=== PATIENT | female | born 1940 | race Caucasian/White ===

== ENCOUNTER → 2016-02-25 | Outpatient (CLI) | payer OTHER ==
[~2016-02-25] MED LIST: CALC500C70 PO; CHOLTAB3 PO; CIPR0.3S OPL; CRAN1CAP15 PO; CRAN1TAB6 PO; ERGO1TAB12 PO; LISI20TA3 PO; LOVA20TA4 PO; NEPA0.6D OPL; NEPA0.6D OPR; PRED1SUS3 OPL
== END | disposition home or self-care (01) ==
LOC: C.LABMFLN 09:07
PROVIDERS: ATTEND Family Medicine
DX: R30.0 Dysuria (principal); N39.0 Urinary tract infection, site not specified

== ENCOUNTER → 2016-05-14 | Outpatient (CLI) | payer OTHER ==
[2016-05-14 13:27] LABS: ALT/SGPT 32 U/L (12-78); AST/SGOT 23 U/L (15-37); BLOOD UREA NITROGEN 15 mg/dl (7-18); BUN/CREATININE RATIO 16.7 (10-20); CALCIUM 9.4 mg/dl (8.5-10.1); CARBON DIOXIDE 30 mmol/L (21-32); CHLORIDE 106 mmol/L (98-107); CHOLESTEROL 155 mg/dl (0-200); GLUCOSE 102 mg/dl (70-99); POTASSIUM 3.9 mmol/L (3.5-5.1); SODIUM 142 mmol/L (136-145)
[2016-05-14 13:31] LABS: CHOLESTEROL/HDL RATIO 3.5; HDL CHOLESTEROL 44 mg/dl; LDL CHOLESTEROL CALCULATED 76 mg/dl; TRIGLYCERIDES 175 mg/dl (0-150); VERY LOW DENSITY LIPOPROT CALC 35 mg/dl
== END | disposition home or self-care (01) ==
LOC: C.LABMFLN 08:04
PROVIDERS: ATTEND Family Medicine
DX: I10 Essential (primary) hypertension (principal); E78.00 Pure hypercholesterolemia, unspecified; R73.03 Prediabetes; E83.42 Hypomagnesemia; M81.0 Age-related osteoporosis without current pathological fracture

== ENCOUNTER → 2016-07-28 | Outpatient (CLI) | payer OTHER | END | disposition home or self-care (01) | LOC: C.LABMFLN 11:48 | PROVIDERS: ATTEND Family Medicine | DX: R35.0 Frequency of micturition (principal) ==

== ENCOUNTER 2016-08-01 09:28 | Observation (INO) | payer OTHER ==
[~2016-08-01] VITALS: Ht 161.3 cm; Wt 69.4 kg
[~2016-08-01 09:28] MED LIST changes: -CRAN1TAB6 PO; -ERGO1TAB12 PO
[2016-08-01] MEDS ORDERED: ASPIRIN 81 MG CHEW PO STA (09:42)
[2016-08-01] MEDS ORDERED: NITROGLYCERIN 0.4 MG SL PER TAB CHARGE SL PRN ×2 (09:45→13:00)
[2016-08-01] MEDS ORDERED: METOPROLOL TARTRATE 1 MG/ML VIAL IV STA (09:47)
--- NOTE | 2016-08-01 10:05 | DIAGNOSTIC IMAGING REPORT ---
CHEST ONE VIEW PORTABLE CLINICAL HISTORY: Fever and sepsis COMPARISON STUDY: No previous studies for comparison. FINDINGS: The cardiac and mediastinal contours are normal. There is no evidence of focal pulmonary consolidation. There is no evidence of failure. No pleural effusions are visualized.[ IMPRESSION: No active disease in the chest. Electronically signed by: Rishi Flores M.D. 08/01/2016 10:04 AM Dictated Date/Time: 08/01/2016 10:03 AM
[2016-08-01 10:11] LABS: BASO % 0.2 %; BASO ABS # 0.02 K/uL (0-0.2); COMPLETE YES; EOS % 0.7 %; HEMATOCRIT 45.7 % (37-47); IG% 0.2 %; LYMPH % 19.7 %; LYMPH ABS # 1.67 K/uL (1.2-3.4); MEAN CELL VOLUME 86.6 fL (80-100); MEAN CORPUSCULAR HEMOGLOBIN 30.3 pg (25-34); MEAN PLATELET VOLUME 10.1 fL (7.4-10.4); NEUT % 71.2 %; PLATELET COUNT 212 K/uL (130-400); RED BLOOD COUNT 5.28 M/uL (4.2-5.4); WHITE BLOOD COUNT 8.48 K/uL (4.8-10.8)
[2016-08-01] MEDS ORDERED: CRAN1TAB6 PO (10:16)
[2016-08-01] MEDS ORDERED: ERGO1TAB12 PO (10:16)
[2016-08-01 10:28] LABS: PROTHROMBIN TIME (PATIENT) 10.2 SECONDS (9.0-12.0)
[2016-08-01 10:36] LABS: ALT/SGPT 27 U/L (12-78); BLOOD UREA NITROGEN 12 mg/dl (7-18); BUN/CREATININE RATIO 12.9 (10-20); CARBON DIOXIDE 25 mmol/L (21-32); CHLORIDE 101 mmol/L (98-107); CREATININE 0.92 mg/dl (0.60-1.20); GLUCOSE 124 mg/dl (70-99); POTASSIUM 3.9 mmol/L (3.5-5.1); SODIUM 138 mmol/L (136-145)
[2016-08-01 10:43] LABS: URINE APPEARANCE CLEAR (CLEAR); URINE BILIRUBIN NEG (NEG); URINE COLOR YELLOW; URINE EPITHELIAL CELL AUTO >30 /lpf (0-5); URINE NITRITE NEG (NEG); URINE SPECIFIC GRAVITY 1.014 (1.000-1.030); UROBILINOGEN NEG (NEG)
[2016-08-01 10:46] LABS: MANUAL MICROSCOPIC REQUIRED? NO; REVIEW REQ? NO
[2016-08-01 10:47] LABS: ALKALINE PHOSPHATASE 81 U/L (45-117); AST/SGOT 22 U/L (15-37); CKMB/CK RATIO 2.7 (0-3.0)
[2016-08-01 11:18] LABS: CALCIUM 10.4 mg/dl (8.5-10.1)
--- NOTE | 2016-08-01 12:29 | EMERGENCY ROOM VISIT NOTE ---
History Report prepared by Dariusz: Franci Stevens Under the Supervision of: Varghese StricklandO. First contact with patient: 09:42 Chief Complaint: CARDIAC ASSESSMENT Stated Complaint: CHEST TIGHTNESS, SOB, HYPERTENSION Nursing Triage Summary: triage note: pt reports "i have been up all night with chest tightness, no pain, i am also short of breath." History of Present Illness The patient is a 75 year old female who presents to the Emergency Room with complaints of persistent chest tightness starting last night. She reports a fast heart rate. She also complains of shortness of breath. She denies diaphoresis, nausea, vomiting, or any other complaints. She has a history of acid reflux but denies any similar symptoms today. She also has a history of hypertension but denies missing any of her prescribed medications. She had an episode high blood pressure about a week ago and was taken off of Meloxicam with relief. She denies any history of heart disease. She was diagnosed with a UTI 4 days ago and she was started on Cipro. Source of History: patient Onset: last night Position: chest Quality: other (tightness) Timing: other (persistent) Associated Symptoms: + SOB, No diaphoresis, No nausea, No vomiting Review of Systems See HPI for pertinent positives & negatives. A total of 10 systems reviewed and were otherwise negative. Past Medical & Surgical Medical Problems: (1) HTN (hypertension) (2) Hypomagnesemia (3) Pharyngitis Family History Patient reports no known family medical history. Social History Smoking Status: Never Smoker Marital Status: Occupation Status: retired Current/Historical Medications Scheduled Calcium/Vitamin D (Os-Damian 500 Plus D), 1 TAB PO BID Cranberry (Vaccinium Macrocarp (Cranberry), 600 MG PO DAILY Ergocalciferol (Vitamin D2), 2,000 UNITS PO DAILY Lisinopril (Prinivil), 20 MG PO QAM Lovastatin (Mevacor), 20 MG PO HS Allergies Coded Allergies: Sulfa Antibiotics (Verified Allergy, Mild, "SULFA": HIVES, 08/01/16) Physical Exam Vital Signs Date Time Temp Pulse Resp B/P (MAP) Pulse Ox O2 Delivery O2 Flow Rate FiO2 08/01/16 11:16 82 20 163/101 97 Room Air 08/01/16 11:02 81 18 158/108 97 Room Air 08/01/16 10:09 172/117 08/01/16 10:03 102 187/98 08/01/16 10:01 102 18 187/98 Room Air 08/01/16 10:01 96 Room Air 08/01/16 09:47 130 08/01/16 09:36 36.7 109 18 201/103 98 Room Air Physical Exam CONSTITUTIONAL/VITAL SIGNS: Reviewed / noted above. GENERAL: Non-toxic in appearance. INTEGUMENTARY: Warm, dry, and Gerty. HEAD: Normocephalic. EYES: without scleral icterus or trauma. ENT/OROPHARYNX: clear and moist. LYMPHADENOPATHY/NECK: Is supple without lymphadenopathy or meningismus. RESPIRATORY: Lungs clear and equal. CARDIOVASCULAR: Tachycardic rate and regular rhythm. GI/ABDOMEN: Soft and nontender. No organomegaly or pulsatile mass. No rebound or guarding. Normal bowel sounds. EXTREMITIES: Warm and well perfused. BACK: No CVA tenderness. NEUROLOGICAL: Intact without focal deficits. PSYCHIATRIC: normal affect. MUSCULOSKELETAL: Normally developed with good muscle tone. Medical Decision & Procedures ER Provider Diagnostic Interpretation: X ray results and stated below per my interpretation and radiology interpretation. CHEST ONE VIEW PORTABLE CLINICAL HISTORY: Fever and sepsis COMPARISON STUDY: No previous studies for comparison. FINDINGS: The cardiac and mediastinal contours are normal. There is no evidence of focal pulmonary consolidation. There is no evidence of failure. No pleural effusions are visualized.[ IMPRESSION: No active disease in the chest. Electronically signed by: Rishi Flores M.D. 08/01/2016 10:04 AM Dictated Date/Time: 08/01/2016 10:03 AM Laboratory Results 08/01/16 10:00 Red Blood Count 5.28, Mean Corpuscular Volume 86.6, Mean Corpuscular Hemoglobin 30.3, Mean Corpuscular Hemoglobin Concent 35.0, Mean Platelet Volume 10.1, Neutrophils (%) (Auto) 71.2, Lymphocytes (%) (Auto) 19.7, Monocytes (%) (Auto) 8.0, Eosinophils (%) (Auto) 0.7, Basophils (%) (Auto) 0.2, Neutrophils # (Auto) 6.03, Lymphocytes # (Auto) 1.67, Monocytes # (Auto) 0.68, Eosinophils # (Auto) 0.06, Basophils # (Auto) 0.02 08/01/16 10:00 Test 08/01/16 10:00 08/01/16 10:15 White Blood Count 8.48 K/uL (4.8-10.8) Red Blood Count 5.28 M/uL (4.2-5.4) Hemoglobin 16.0 g/dL (12.0-16.0) Hematocrit 45.7 % (37-47) Mean Corpuscular Volume 86.6 fL (80-100) Mean Corpuscular Hemoglobin 30.3 pg (25-34) Mean Corpuscular Hemoglobin Concent 35.0 g/dl (32-36) Platelet Count 212 K/uL (130-400) Mean Platelet Volume 10.1 fL (7.4-10.4) Neutrophils (%) (Auto) 71.2 % Lymphocytes (%) (Auto) 19.7 % Monocytes (%) (Auto) 8.0 % Eosinophils (%) (Auto) 0.7 % Basophils (%) (Auto) 0.2 % Neutrophils # (Auto) 6.03 K/uL (1.4-6.5) Lymphocytes # (Auto) 1.67 K/uL (1.2-3.4) Monocytes # (Auto) 0.68 K/uL (0.11-0.59) Eosinophils # (Auto) 0.06 K/uL (0-0.5) Basophils # (Auto) 0.02 K/uL (0-0.2) RDW Standard Deviation 40.5 fL (36.4-46.3) RDW Coefficient of Variation 12.7 % (11.5-14.5) Immature Granulocyte % (Auto) 0.2 % Immature Granulocyte # (Auto) 0.02 K/uL (0.00-0.02) Prothrombin Time 10.2 SECONDS (9.0-12.0) Prothromb Time International Ratio 1.0 (0.9-1.1) Activated Partial Thromboplast Time 26.7 SECONDS (21.0-31.0) Partial Thromboplastin Ratio 1.0 Anion Gap 12.0 mmol/L (3-11) Est Creatinine Clear Calc Drug Dose 48.8 ml/min Estimated GFR () 70.1 Estimated GFR (Non- 60.5 BUN/Creatinine Ratio 12.9 (10-20) Calcium Level 10.4 mg/dl (8.5-10.1) Total Bilirubin 0.5 mg/dl (0.2-1) Direct Bilirubin 0.1 mg/dl (0-0.2) Aspartate Amino Transf (AST/SGOT) 22 U/L (15-37) Alanine Aminotransferase (ALT/SGPT) 27 U/L (12-78) Alkaline Phosphatase 81 U/L (45-117) Total Creatine Kinase 79 U/L (26-192) Creatine Kinase MB 2.1 ng/ml (0.5-3.6) Creatine Kinase MB Ratio 2.7 (0-3.0) Troponin I < 0.015 ng/ml (0-0.045) Total Protein 8.6 gm/dl (6.4-8.2) Albumin 4.6 gm/dl (3.4-5.0) Lipase 264 U/L (73-393) Thyroid Stimulating Hormone (TSH) 2.050 uIu/ml (0.300-4.500) Urine Color YELLOW Urine Appearance CLEAR (CLEAR) Urine pH 6.0 (4.5-7.5) Urine Specific [place] 1.014 (1.000-1.030) Urine Protein 1+ (NEG) Urine Glucose (UA) NEG (NEG) Urine Ketones NEG (NEG) Urine Occult Blood NEG (NEG) Urine Nitrite NEG (NEG) Urine Bilirubin NEG (NEG) Urine Urobilinogen NEG (NEG) Urine Leukocyte Esterase NEG (NEG) Urine WBC (Auto) 1-5 /hpf (0-5) Urine RBC (Auto) 0-4 /hpf (0-4) Urine Hyaline Casts (Auto) 0 /lpf (0-5) Urine Epithelial Cells (Auto) >30 /lpf (0-5) Urine Bacteria (Auto) NEG (NEG) Laboratory results as stated above per my review. Medications Administered Medications (Trade) Dose Ordered Sig/Adrienne Route Start Time Stop Time Status Last Admin Dose Admin Aspirin (Aspirin Chew) 324 mg NOW STAT PO 08/01/16 09:42 08/01/16 09:44 DC 08/01/16 10:03 324 MG Metoprolol Tartrate (Lopressor Iv) 5 mg NOW STAT IV 08/01/16 09:47 08/01/16 09:48 DC 08/01/16 10:03 5 MG ECG Indication: chest pain Rate (beats per minute): 100 Rhythm: normal sinus Findings: no acute ischemic change, no ectopy ED Course 0942: Previous medical records were reviewed. The patient was evaluated in room B04B. A complete history and physical examination was performed. 0942: Aspirin 324 mg PO 0947: Lopressor IV 5 mg IV 1209: On reevaluation, the patient is resting comfortably. I discussed the results and findings with her. She verbalized agreement of the treatment plan. The patient will be evaluated for further management and care. 1217: I discussed the patient's case with Dr. Godinez, from [facility] Hospitalist Service. Medical Decision the differential was considered includes acute myocardial infarction, acute coronary syndrome, myocarditis, pericarditis, pericardial effusions /tamponade, esophageal perforation, thoracic aortic dissection, pulmonary embolism, pneumonia, pneumothorax, pancreatitis, shingles, acute cholecystitis, perforated abdominal viscus. Medication Reconciliation: I attest that I have personally reviewed the patient' s current medication list. Blood pressure Screening: Patient was found to have an elevated blood pressure and was referred to the hospitalist for recheck and further treatment. This is a 75-year-old female who presents to the ED with a chief complaint of chest discomfort. She describes it as a retrosternal tightness. She has associated shortness of breath. She states that she has difficulty getting a good deep breath. Her symptoms started last night around 10 PM. She denies any associated nausea or diaphoresis. She states that she did take her lisinopril this morning. Her initial blood pressure here was 201/103. The patient was on meloxicam 2 weeks ago for arthritis. Her blood pressure was noticed to be quite elevated in the 200s systolic range and this was discontinued. She was started on Cipro for UTI on Thursday. The patient has an unremarkable exam. Her EKG shows a normal sinus rhythm. CBC and complete metabolic panel are normal. Troponin was negative. TSH is normal. Lipase is negative. Urine did not show infection. Chest x-ray was negative for acute disease. The patient was treated with Toprol 5 mg IV and aspirin by mouth. She refused nitroglycerin. Her blood pressure improved to 155/99. On reassessment her symptoms have improved. She was seen by the hospice for further inpatient evaluation of her chest pain and hypertension. Consults Time Called: 1215 Consulting Physician: Dr. Godinez, from [facility] Hospitalist Service Returned Call: 1217 I discussed the patient's case with Dr. Godinez, from [facility] Hospitalist Service. Impression Primary Impression: Retrosternal chest pain Additional Impression: Accelerated hypertension Scribe Attestation The scribe's documentation has been prepared under my direction and personally reviewed by me in its entirety. I confirm that the note above accurately reflects all work, treatment, procedures, and medical decision making performed by me. Departure Information Dispostion Being Evaluated By Hospitalist Referrals Miguel Cuevas M.D. (PCP) Patient Instructions My [facility] Problem Qualifiers
[2016-08-01] MEDS ORDERED: PANTOprazole SOD 40 MG TAB PO ONE (13:00)
[2016-08-01] MEDS ORDERED: HydrALAZINE HCL 20 MG/ML VIAL IV. PRN (13:00)
[2016-08-01] MEDS ORDERED: ACETAMINOPHEN 325 MG TAB PO PRN (13:00)
[2016-08-01] MEDS ORDERED: POLYETHYLENE (MIRALAX) 17 GM PACK PO PRN (13:00)
[2016-08-01] MEDS ORDERED: MAGNESIUM HYDROXIDE SUSP 30 ML UDC PO PRN (13:00)
[2016-08-01] MEDS ORDERED: ALUMINUM/MAGNESIUM/SIMETH (MAALOX MAX) 30 ML UDC PO PRN (13:00)
[2016-08-01] MEDS ORDERED: METOPROLOL TARTRATE 1 MG/ML VIAL IV PRN (13:00)
--- NOTE | 2016-08-01 13:31 | History and Physical ---
History & Physical Date & Time of Service: Aug 01, 2016 at 13:07 Chief Complaint: Chest Tightness, Sob, Hypertension Primary Care Physician: Miguel Cuevas M.D. History of Present Illness Source: patient, clinic records, hospital records, friend (at bedside) Patient is 75 y/o female, with PMHx of HTN and dyslipidemia, who presented to the ED because of CP and SOB that started on 07/31 evening. Patient states she was in bed last evening when she noted central anterior chest pain. Pain is described as a "tightness," does not radiate, and is constant. Her SOB comes and goes. She denies history of COPD/asthma or smoking. She is currently oxygenating on RA and able to speak full sentences w/ no SOB. She admits to a similar episode a couple of weeks ago. The patient was placed on Meloxicam, but her BP started to rise so it was discontinued. Along w/ her high BP, she develop similar symptoms but less intense. The patient has been logging her BPs over the last couple of weeks since d/c'ing Meloxicam- BPs 130-140/80, until today when she checked, her BP was elevated. On arrival to ED her BP was 201/ 103. She only takes Lisinopril 20 mg daily for blood pressure management. She denies issues with BP control until starting Meloxicam. Patient admits to similar symptoms about 3 years ago, she had an EGD and placed on Protonix, which resolved her symptoms. She denies current use of Protonix. She has had stress test in the past which were unremarkable. She was placed on Cipro on for a UTI. Currently, her CP and SOB is improving; she was given ASA 325 mg and IV Metoprol 5 mg in ED. Patient denies any fever, chills, sweats, lightheadedness, dizziness, vision changes, palpitations, edema, wheezing, cough , abdominal pain, nausea, vomiting, diarrhea, urinary symptoms, melena, numbness /tingling, weakness, muscle/joint pain, anxiety/depression, active bleeding, or new skin discoloration/changes. Past Medical/Surgical History Medical Problems: 1. HTN 2. Dyslipidemia Surgical History: 1. Total hysterectomy 2. Cholecystectomy 3. Hernia repair Family History Father- CVA Social History Smoking Status: Never Smoker Marital Status: Occupational Status: retired Allergies Coded Allergies: Sulfa Antibiotics (Verified Allergy, Mild, "SULFA": HIVES, 08/01/16) Home Medications Scheduled Calcium/Vitamin D (Os-Damian 500 Plus D), 1 TAB PO BID Cranberry (Vaccinium Macrocarp (Cranberry), 600 MG PO DAILY Ergocalciferol (Vitamin D2), 2,000 UNITS PO DAILY Lisinopril (Prinivil), 20 MG PO QAM Lovastatin (Mevacor), 20 MG PO HS Physical Exam Vital Signs Date Time Temp Pulse Resp B/P (MAP) Pulse Ox O2 Delivery O2 Flow Rate FiO2 08/01/16 12:52 99 18 155/99 98 Room Air 08/01/16 11:16 82 20 163/101 97 Room Air 08/01/16 11:02 81 18 158/108 97 Room Air 08/01/16 10:09 172/117 08/01/16 10:03 102 187/98 08/01/16 10:01 102 18 187/98 Room Air 08/01/16 10:01 96 Room Air 08/01/16 09:47 130 08/01/16 09:36 36.7 109 18 201/103 98 Room Air General Appearance: no apparent distress Head: normocephalic, atraumatic Eyes: normal inspection, PERRL ENT: hearing grossly normal Neck: supple, no carotid bruits Respiratory/Chest: lungs clear, no respiratory distress, no accessory muscle use Cardiovascular: regular rate, rhythm Abdomen/GI: normal bowel sounds, non tender, soft Back: normal inspection Extremities/Musculoskelatal: no calf tenderness, no pedal edema Neurologic/Psych: alert, normal mood/affect, oriented x 3 Skin: normal color, warm/dry, no rash Diagnostics Laboratory Results Results Past 24 Hours Test 08/01/16 10:00 08/01/16 10:15 Range/Units White Blood Count 8.48 4.8-10.8 K/uL Red Blood Count 5.28 4.2-5.4 M/uL Hemoglobin 16.0 12.0-16.0 g/dL Hematocrit 45.7 37-47 % Mean Corpuscular Volume 86.6 80-100 fL Mean Corpuscular Hemoglobin 30.3 25-34 pg Mean Corpuscular Hemoglobin Concent 35.0 32-36 g/dl Platelet Count 212 130-400 K/uL Mean Platelet Volume 10.1 7.4-10.4 fL Neutrophils (%) (Auto) 71.2 % Lymphocytes (%) (Auto) 19.7 % Monocytes (%) (Auto) 8.0 % Eosinophils (%) (Auto) 0.7 % Basophils (%) (Auto) 0.2 % Neutrophils # (Auto) 6.03 1.4-6.5 K/uL Lymphocytes # (Auto) 1.67 1.2-3.4 K/uL Monocytes # (Auto) 0.68 0.11-0.59 K/uL Eosinophils # (Auto) 0.06 0-0.5 K/uL Basophils # (Auto) 0.02 0-0.2 K/uL RDW Standard Deviation 40.5 36.4-46.3 fL RDW Coefficient of Variation 12.7 11.5-14.5 % Immature Granulocyte % (Auto) 0.2 % Immature Granulocyte # (Auto) 0.02 0.00-0.02 K/uL Prothrombin Time 10.2 9.0-12.0 SECONDS Prothromb Time International Ratio 1.0 0.9-1.1 Activated Partial Thromboplast Time 26.7 21.0-31.0 SECONDS Partial Thromboplastin Ratio 1.0 Sodium Level 138 136-145 mmol/L Potassium Level 3.9 3.5-5.1 mmol/L Chloride Level 101 98-107 mmol/L Carbon Dioxide Level 25 21-32 mmol/L Anion Gap 12.0 3-11 mmol/L Blood Urea Nitrogen 12 7-18 mg/dl Creatinine 0.92 0.60-1.20 mg/dl Est Creatinine Clear Calc Drug Dose 48.8 ml/min Estimated GFR () 70.1 Estimated GFR (Non- 60.5 BUN/Creatinine Ratio 12.9 10-20 Random Glucose 124 70-99 mg/dl Calcium Level 10.4 8.5-10.1 mg/dl Total Bilirubin 0.5 0.2-1 mg/dl Direct Bilirubin 0.1 0-0.2 mg/dl Aspartate Amino Transf (AST/SGOT) 22 15-37 U/L Alanine Aminotransferase (ALT/SGPT) 27 12-78 U/L Alkaline Phosphatase 81 45-117 U/L Total Creatine Kinase 79 26-192 U/L Creatine Kinase MB 2.1 0.5-3.6 ng/ml Creatine Kinase MB Ratio 2.7 0-3.0 Troponin I < 0.015 0-0.045 ng/ml Total Protein 8.6 6.4-8.2 gm/dl Albumin 4.6 3.4-5.0 gm/dl Lipase 264 73-393 U/L Thyroid Stimulating Hormone (TSH) 2.050 0.300-4.500 uIu/ml Urine Color YELLOW Urine Appearance CLEAR CLEAR Urine pH 6.0 4.5-7.5 Urine Specific [place] 1.014 1.000-1.030 Urine Protein 1+ NEG Urine Glucose (UA) NEG NEG Urine Ketones NEG NEG Urine Occult Blood NEG NEG Urine Nitrite NEG NEG Urine Bilirubin NEG NEG Urine Urobilinogen NEG NEG Urine Leukocyte Esterase NEG NEG Urine WBC (Auto) 1-5 0-5 /hpf Urine RBC (Auto) 0-4 0-4 /hpf Urine Hyaline Casts (Auto) 0 0-5 /lpf Urine Epithelial Cells (Auto) >30 0-5 /lpf Urine Bacteria (Auto) NEG NEG Diagnostic Radiology CHEST ONE VIEW PORTABLE CLINICAL HISTORY: Fever and sepsis COMPARISON STUDY: No previous studies for comparison. FINDINGS: The cardiac and mediastinal contours are normal. There is no evidence of focal pulmonary consolidation. There is no evidence of failure. No pleural effusions are visualized.[ IMPRESSION: No active disease in the chest. Electronically signed by: Rishi Flores M.D. 08/01/2016 10:04 AM Dictated Date/Time: 08/01/2016 10:03 AM The status of this report is Signed. Draft = Not yet reviewed or approved by Radiologist. Signed = Reviewed and approved by Radiologist. EKG PAUL ADAMSON ID:[id number] 01-AUG-2016 09:42:19 [facility], [place] Normal sinus rhythm Cannot rule out Anterior infarct , age undetermined Abnormal ECG No previous ECGs available 25mm/s 10mm/mV 150Hz 8.0 SP2 12SL 241 KERI: 3 Referred by: ED Unconfirmed Vent. rate 100 BPM NJ interval 148 ms QRS duration 82 ms QT/QTc 338/436 ms P-R-T axes 25 -5 35 1940 (75 yr) Female Room:[facility] Loc:13 [employer] Agent:APRIL Moreland ind: Impression Assessment and Plan Patient is 75 y/o female, with PMHx of HTN and dyslipidemia, who presented to the ED because of CP and SOB that started on 07/31 evening. CP/SOB, ?secondary to acute cardiac event vs. HTN vs. GERD: - Admit to tele for cardiac monitoring - Trend cardiac enzymes- initial enzymes negative - EKG w/ no acute findings- repeat EKG QAM and PRN w/ CP - Check hA1C - Start ASA 81 mg daily - Start Protonix 40 mg daily - Suspect is not cardiac related- will observe overnight and trend enzymes- consider additional workup inpatient vs outpatient as indicated HTN- UNCONTROLLED: - Continue Lisinopril 20 mg daily- monitor overnight for need of additional BP control - IV Hydralazine 10 mg PRN for SBP >180 or DBP >100 Tachycardia: IV Metoprolol 5 mg PRN for HR >120 Dyslipidemia: - Continue Lovastatin 20 mg daily - Check lipid panel UTI- diagnosed 07/28/16: Continue Cipro 500 mg BID- last day of treatment 08/03 GI Prophylaxis: Protonix, Maalox PRN, IV Zofran PRN, Colace and/or Milk of Mag PRN DVT prophylaxis: Heparin 5000 units SQ q12 hrs, AWA and SCDs Code Status: LEVEL I, FULL Dispo: From home, lives w/ - PT/OT consulted PA Physician Supervision Note: I was present with the PA during the history and exam. I discussed the case with the PA and agree with the findings and plan as documented in the note. Any exceptions or clarifications are listed here: 75 y/o F HTN, HPL - recent poorly controlled HTN and over last 2 days having episodes of CP OE AAO x 3 S1,2 R CTAB NT, ND No CCE P: R/O ND Received IV Toprol for SBP > 200 on arrival with good response CP resolved at time of admission - will trend and may need med adjustment prior to DC Serial enzymes requested May need to schedule stress as outpt Documented By: James Godinez Level of Care Telemetry Resuscitation Status FULL RESUSCITATION VTE Prophylaxis VTE Risk Assessment Done? Y/N: Yes Risk Level: Moderate Given or contraindicated: Unfractionated heparin SQ, T.E.D. Stockings, SCD's
[2016-08-01 14:15] VITALS: BP 167/90; PULSE 88; TEMP 37; O2SAT 99; Ht 161.3 cm; Wt 69.4 kg
[2016-08-01] MEDS: CIPROFLOXACIN 500 MG TAB PO SCH ×2 (15:00→21:32)
[2016-08-01 15:53] VITALS: BP 138/86; PULSE 64; TEMP 37.1; O2SAT 97
[2016-08-01 19:02] VITALS: BP 149/75; PULSE 77; TEMP 36.9; O2SAT 96
[2016-08-01] MEDS: HEPARIN SOD 5000 UNIT/0.5 ML CARP SQ SCH (21:33)
[2016-08-01] MEDS: ONDANSETRON INJ 2 MG/ML 2 ML VIAL IV PRN (22:46)
[2016-08-01 23:35] VITALS: BP 185/84; PULSE 101; TEMP 36.5; O2SAT 97
[2016-08-02 00:27] VITALS: BP 155/77; PULSE 109
[2016-08-02] MEDS: ONDANSETRON INJ 2 MG/ML 2 ML VIAL IV PRN ×2 (01:29→11:20)
[2016-08-02] MEDS ORDERED: NURSING VERBAL MED ORDER ONE (01:30)
[2016-08-02] MEDS ORDERED: ONDANSETRON INJ 2 MG/ML 2 ML VIAL IV STA (01:32)
[2016-08-02] MEDS ORDERED: PROMETHAZINE HCL INJ 12.5 MG in SODIUM CHLORIDE 0.9% 50ML 50 ML IV PRN (01:45)
[2016-08-02] MEDS: RANITIDINE IV 50 MG in DEXTROSE 5% 100ML 100 ML IV SCH ×2 (01:52→09:24)
[2016-08-02 02:27] LABS: CHOLESTEROL/HDL RATIO 2.7
[2016-08-02 04:13] VITALS: BP 119/72; PULSE 88; TEMP 36.8; O2SAT 96
[2016-08-02 06:52] LABS: ESTIMATED AVERAGE GLUCOSE 114 mg/dl; HA1C FLAG Normal (Normal)
[2016-08-02 07:00] VITALS: BP 110/68; PULSE 84; TEMP 36.6; O2SAT 93
[2016-08-02] MEDS: CIPROFLOXACIN 500 MG TAB PO SCH (08:09)
[2016-08-02] MEDS: HEPARIN SOD 5000 UNIT/0.5 ML CARP SQ SCH (08:12)
[2016-08-02] MEDS ORDERED: LISINOPRIL 20 MG TAB PO SCH (09:00)
[2016-08-02] MEDS ORDERED: PANTOprazole SOD 40 MG TAB PO SCH (09:00)
[2016-08-02] MEDS ORDERED: ASPIRIN 81 MG ECTAB PO SCH (09:00)
[2016-08-02] MEDS ORDERED: GI COCKTAIL PO ONE (11:00)
[2016-08-02] MEDS ORDERED: ALUMINUM/MAGNESIUM SUSP 18 ML, LIDOCAINE HCL 2% VISCOUS SOLN 6 ML, BARCODE IDENTIFIER 1 EA PO ONE ×2 (11:30)
[2016-08-02] MEDS ORDERED: BUTALBITAL/ACETAMIN/CAFFEINE TAB PO ONE (11:30)
[2016-08-02 12:00] VITALS: BP 169/78; PULSE 90; TEMP 37; O2SAT 95
[2016-08-02 15:16] VITALS: BP 176/95; PULSE 104; TEMP 36.6; O2SAT 94
--- NOTE | 2016-08-02 17:03 | Discharge Instructions ---
Discharge Instructions Date of Service Aug 02, 2016. Admission Reason for Admission: Accelerated Hypertension, Retrosternal Chest Pain Discharge Discharge Diagnosis / Problem: Chest pain rule out ACS Discharge Goals Goal(s): Decrease discomfort, Improve function, Increase independence, Improve disease control, Learn about illness, Diagnostic testing, Prevent Disease Progression Activity Recommendations Activity Limitations: resume your previous activity Exercise/Sports Limitations: none Shower/Bathe: no limitations . Instructions / Follow-Up Instructions / Follow-Up Patient to be discharged home Chest pain likely from stomach or reflux issues or inflammation from chest wall from exertion EKG normal No changes in medications If worsening pain please report to ER Please follow up with primary care provider as scheduled Current Hospital Diet Patient's current hospital diet: AHA Diet (Heart Healthy) Discharge Diet Recommended Diet: AHA Diet (Heart Healthy) Pending Studies Studies pending at discharge: no Laboratory Results Hemoglobin A1c Test 08/02/16 01:55 Range/Units Estimated Average Glucose 114 mg/dl Hemoglobin A1c 5.6 4.5-5.6 % Lipid Panel Test 08/02/16 01:55 Range/Units Triglycerides Level 112 0-150 mg/dl Cholesterol Level 140 0-200 mg/dl HDL Cholesterol 51 mg/dl Cholesterol/HDL Ratio 2.7 LDL Cholesterol, Calculated 67 mg/dl Medical Emergencies . Who to Call and When: Medical Emergencies: If at any time you feel your situation is an emergency, please call 911 immediately. . Non-Emergent Contact Non-Emergency issues call your: Primary Care Provider Call Non-Emergent contact if: your pain is worsening . . "Provider Documentation" section prepared by Ky Bean. . VTE Core Measure Inpt VTE Proph given/why not?: Unfractionated heparin AC, T.E.[place]. Jim, SCD 's
[2016-08-02 17:08] VITALS: BP 176/95; PULSE 104; TEMP 36.6; O2SAT 94
--- NOTE | 2016-08-02 17:08 | Discharge Summary ---
Discharge Summary Date of Service Aug 02, 2016. Discharge Summary Admission Date: Aug 01, 2016 at 13:06 Discharge Date: Aug 02, 2016 Principal Diagnosis: Chest pain Medication Reconciliation Continued Medications: Calcium/Vitamin D (Os-Damian 500 Plus D) Tab 1 TAB PO BID, TAB Cranberry (Vaccinium Macrocarp (Cranberry) 600 Mg Tab 600 MG PO DAILY Ergocalciferol (Vitamin D2) 2,000 Unit Tab 2000 UNITS PO DAILY Lisinopril (Prinivil) 20 Mg Tab 20 MG PO QAM, TAB Lovastatin (Mevacor) 20 Mg Tab 20 MG PO HS, TAB Discharge Exam Review of Systems: Constitutional: No fever, No chills, No sweats, No weakness ENT: No hearing loss, No unusual epistaxis, No nasal symptoms, No sore throat, No tinnitus Respiratory: No cough, No sputum, No wheezing, No shortness of breath, No dyspnea on exertion Cardiovascular: No chest pain, No orthopnea, No PND, No edema Abdomen: + nausea, No pain, No vomiting, No diarrhea, No constipation Musculoskeletal: No joint pain, No muscle pain, No swelling Genitourinary - Female: No dysuria, No urinary frequency, No urinary urgency , No urinary incontinence Neurologic: No memory loss, No paralysis, No weakness, No numbness/tingling Physical Exam: General Appearance: WD/WN, no apparent distress Eyes: normal inspection, PERRL, EOMI, sclerae normal Neck: supple, no adenopathy, thyroid normal, no JVD Respiratory/Chest: chest non-tender, lungs clear, normal breath sounds, no respiratory distress Cardiovascular: regular rate, rhythm, no edema, no gallop, no JVD Abdomen / GI: normal bowel sounds, non tender, soft, no organomegaly, no pulsatile mass Extremities: normal inspection, no calf tenderness, normal capillary refill , no pedal edema Neurologic/Psychiatric: alert, normal mood/affect, normal reflexes, oriented x 3 Skin: normal color, warm/dry, no rash Lymphatic: no adenopathy Hospital Course Patient is 75 y/o female, with PMHx of HTN and dyslipidemia, who presented to the ED because of CP and SOB that started on 07/31 evening. CP/SOB, likely related to GERD or gastritis - Admit to [facility] for cardiac monitoring - Trend cardiac enzymes- all neg - EKG w/ no acute findings - Check hA1C 5.6 - Start ASA 81 mg daily - Start Protonix 40 mg daily - Suspect is not cardiac related-ok to DC home HTN-likely uncontrolled form GI distress - Continue Lisinopril 20 mg daily - IV Hydralazine 10 mg PRN for SBP >180 or DBP >100 Tachycardia: IV Metoprolol 5 mg PRN for HR >120 Dyslipidemia: - Continue Lovastatin 20 mg daily - lipid panel unremarkable UTI- diagnosed 07/28/16: Continue Cipro 500 mg BID- last day of treatment 08/03 GI Prophylaxis: Protonix, Maalox PRN, IV Zofran PRN, Colace and/or Milk of Mag PRN DVT prophylaxis: Heparin 5000 units SQ q12 hrs, AWA and SCDs Code Status: LEVEL I, FULL Dispo: From home, lives w/ Total Time Spent: Greater than 30 minutes This includes examination of the patient, discharge planning, medication reconciliation, and communication with other providers. Discharge Instructions Please refer to the electronic Patient Visit Report (Discharge Instructions) for additional information. Additional Copies To Miguel Cuevas M.D.
[2016-08-02] MEDS ORDERED: LOVASTATIN 20 MG TAB PO SCH (21:00)
== END 2016-08-02 17:46 | disposition home or self-care (01) ==
LOC: C.EDB 09:30 → C.2T 13:06 → ENRESERV 13:19
PROVIDERS: ADMIT Internal Medicine; ATTEND Hospitalist
DX: R07.9 Chest pain, unspecified (principal); I10 Essential (primary) hypertension; M19.90 Unspecified osteoarthritis, unspecified site; E78.5 Hyperlipidemia, unspecified; R00.0 Tachycardia, unspecified

== ENCOUNTER → 2016-08-20 | Outpatient (CLI) | payer OTHER ==
[~2016-08-20] MED LIST changes: -CHOLTAB3 PO; -CIPR0.3S OPL; -CRAN1CAP15 PO; +CRAN1TAB6 PO; +ERGO1TAB12 PO; -NEPA0.6D OPL; -NEPA0.6D OPR; -PRED1SUS3 OPL
--- NOTE | 2016-08-20 19:06 | EXERCISE STRESS ECHO ---
*NOTICE TO RECEIVING REPUBL[employer] AGENCY This information is strictly Confidential and protected under [place] law. [place] law prohibits you from making any further disclosure of this information unless further disclosure is expressly permitted by the written consent of the person to whom it pertains or is authorized by law. A general authorization for the release of medical or other information is not sufficient for this purpose. Hospital accepts no responsibility if the information is made available to any other person, INCLUDING THE PATIENT. Interpretation Summary * Name: PAUL ADAMSON Study Date: 08/20/2016 08:21 AM BP: 126/68 mmHg * Patient Location: [facility] HR: 92 * : 1940 (M/d/yyyy) Gender: Female Height: 63 in * Age: 75 yrs Ethnicity: [place] Weight: 153 lb * Ordering Physician: Abdoul Jaramillo * Referring Physician: Amalia Blair * Performed By: Lourdes Rodríguez RCS * * Reason For Study: Chest pain * BSA: 1.7 m2 * Normal ECG and echo response to exercise. * No ECG or echocardiographic evidence of myocardial ischemia. * Hypertensive blood pressure response to exercise. * Class 1 left ventricular diastolic dysfunction. * Normal resting biventricular systolic function. * Normal chamber dimensions. * No significant valvular abnormalities. Procedure Details * Left Ventricle The left ventricle is normal in size. There is normal left ventricular wall thickness. Left ventricular systolic function is normal. Ejection Fraction = 60-65%. A full diastolic examination was done with clinical findings of Class I diastolic dysfunction. Resting wall motion: Normal. Stress wall motion: Appropriate increase in Left ventricular systolic function and decrease in cavity size. No stress induced segmental wall motion abnormalities. The left ventricular ejection fraction increases normally with stress. The left ventricular end-systolic cavity size reduces post-stress (normal response). The left ventricular wall motion with stress is normal. * Right Ventricle The right ventricle is normal in size and function. * Atria The left atrial size is normal. Right atrial size is normal. No ASD detected; PFO is not assessed. * Mitral Valve The mitral valve is normal. There is no mitral valve stenosis. There is trace mitral regurgitation. * Tricuspid Valve The tricuspid valve is normal. There is no tricuspid stenosis. No tricuspid regurgitation. * Aortic Valve The aortic valve is trileaflet. The aortic valve opens well. Aortic stenosis is absent. No aortic regurgitation is present. * Pulmonic Valve The pulmonary valve is inadequately visualized, but the Doppler data is adequate for interpretation. Pulmonic stenosis is absent. There is no pulmonic valvular regurgitation. * Great Vessels The aortic root is normal size. * Pericardium There is no pericardial effusion. * Stress Parameters Normal baseline electrocardiogram. Stress ECG: No ST changes. No arrhythmias. Arrhythmia noted in recovery: occasional PAC's. Rest heart rate was '96' BPM. Rest blood pressure was '126/68' Maximum heart rate achieved was 144 bpm. Maximum heart rate was 100 % of maximum age-predicted heart rate. Maximum blood pressure was '207/92' Total exercise time was '04:37' Maximum exercise MET level achieved was '6.5' METS Maximum treadmill speed was '2.5' miles per hour. Maximum treadmill elevation was '12'% grade. Exercise was terminated due to 'Target Heart Rate Achieved' No Symptoms during treadmill. The patient exhibited a hypertensive response with stress. * * MMode 2D Measurements and Calculations * IVSd 0.84 cm * * LVIDd 4.0 cm * LVIDs 2.5 cm * LVPWd 1.1 cm * * IVS/LVPW 0.78 * FS 37.8 % * EDV(Teich) 68.0 ml * ESV(Teich) 21.4 ml * EF(Teich) 68.5 % * * EDV(cubed) 61.7 ml * ESV(cubed) 14.8 ml * EF(cubed) 75.9 % * * LV mass(C)d 116.7 grams * LV mass(C)dI 67.6 grams/m\S\2 * * SV(Teich) 46.6 ml * SI(Teich) 27.0 ml/m\S\2 * SV(cubed) 46.9 ml * SI(cubed) 27.1 ml/m\S\2 * * Ao root diam 3.2 cm * Ao root area 7.8 cm\S\2 * LA dimension 2.9 cm * * LA/Ao 0.92 * * LVAs ap4 13.9 cm\S\2 * LVLs ap4 6.1 cm * ESV(MOD-sp4) 27.1 ml * ESV(sp4-el) 26.9 ml * * LVAd ap2 22.0 cm\S\2 * LVLd ap2 7.3 cm * EDV(MOD-sp2) 55.4 ml * EDV(sp2-el) 55.8 ml * LVAs ap2 13.1 cm\S\2 * LVLs ap2 5.6 cm * ESV(MOD-sp2) 25.9 ml * ESV(sp2-el) 25.9 ml * EF(MOD-sp2) 53.2 % * EF(sp2-el) 53.5 % * * LVLs %diff -9.53 % * ESV(MOD-bp) 27.6 ml * * SV(MOD-sp2) 29.5 ml * SI(MOD-sp2) 17.1 ml/m\S\2 * * SV(sp2-el) 29.9 ml * SI(sp2-el) 17.3 ml/m\S\2 * * * * * * Doppler Measurements and Calculations * MV E max rebecca 78.8 cm/sec * MV A max rebecca 105.6 cm/sec * * MV E/A 0.75 * * MV dec time 0.15 sec * * Ao V2 max 132.0 cm/sec * Ao max PG 7.0 mmHg * Ao max PG (full) 1.1 mmHg * * LV V1 max PG 5.8 mmHg * * LV V1 max 120.9 cm/sec * * * *
== END | disposition home or self-care (01) ==
LOC: C.CPL 07:50
PROVIDERS: ATTEND Physician Assistant
DX: R07.9 Chest pain, unspecified (principal)

== ENCOUNTER → 2016-11-04 | Outpatient (CLI) | payer OTHER | END | disposition home or self-care (01) | LOC: C.LABMFLN 16:53 | PROVIDERS: ATTEND Family Medicine | DX: R30.0 Dysuria (principal) ==

== ENCOUNTER → 2016-11-11 | Outpatient (CLI) | payer OTHER ==
[2016-11-11 14:19] LABS: BLOOD UREA NITROGEN 19 mg/dl (7-18); CREATININE 0.88 mg/dl (0.60-1.20); GLUCOSE 111 mg/dl (70-99)
[2016-11-11 14:20] LABS: ALT/SGPT 30 U/L (12-78); AST/SGOT 22 U/L (15-37); BUN/CREATININE RATIO 21.9 (10-20); CALCIUM 9.8 mg/dl (8.5-10.1); CARBON DIOXIDE 28 mmol/L (21-32); CHLORIDE 104 mmol/L (98-107); POTASSIUM 4.3 mmol/L (3.5-5.1); SODIUM 138 mmol/L (136-145)
[2016-11-11 14:32] LABS: CHOLESTEROL 157 mg/dl (0-200); CHOLESTEROL/HDL RATIO 2.9; HDL CHOLESTEROL 55 mg/dl; LDL CHOLESTEROL CALCULATED 79 mg/dl; TRIGLYCERIDES 117 mg/dl (0-150); VERY LOW DENSITY LIPOPROT CALC 23 mg/dl
--- NOTE | 2016-11-17 11:59 | CODING QUERY MEDICAL NECESSITY ---
SUPPORTING DIAGNOSIS NEEDED Dr. Cuevas, A supporting diagnosis is required for the test/procedure performed on this patient in order for us to be reimbursed by the patient's insurance. Please provide a supporting diagnosis for the following test/procedure listed below next to the test name along with your signature. *If there is no additional diagnosis for this patient that would support the following test/procedure please document that below next to the test/procedure. Test(s)/Procedure(s) that require a supporting diagnosis: * ([id number]) VITAMIN D ASSAY DIAGNOSIS: DATE OF SERVICE: 11/11/16 Provider Signature: Date: Thank you Corbin [facility] Once completed, please kindly fax back to [phone] For questions please call [phone]
== END | disposition home or self-care (01) ==
LOC: C.LABMFLN 06:58
PROVIDERS: ATTEND Family Medicine
DX: I10 Essential (primary) hypertension (principal); E78.00 Pure hypercholesterolemia, unspecified

== ENCOUNTER → 2016-11-20 | Outpatient (CLI) | payer OTHER ==
[2016-11-20 14:26] LABS: BASO % 0.3 %; BASO ABS # 0.02 K/uL (0-0.2); COMPLETE YES; HEMATOCRIT 42.3 % (37-47); IG% 0.1 %; LYMPH % 21.8 %; LYMPH ABS # 1.47 K/uL (1.2-3.4); MEAN CELL VOLUME 87.4 fL (80-100); MEAN CORPUSCULAR HEMOGLOBIN 30.2 pg (25-34); MEAN CORPUSCULAR HGB CONC 34.5 g/dl (32-36); MEAN PLATELET VOLUME 10.9 fL (7.4-10.4); MONO % 7.6 %; NEUT % 69.2 %; PLATELET COUNT 253 K/uL (130-400); RED BLOOD COUNT 4.84 M/uL (4.2-5.4); WHITE BLOOD COUNT 6.74 K/uL (4.8-10.8)
== END | disposition home or self-care (01) ==
LOC: C.LABMFLN 09:29
PROVIDERS: ATTEND Family Medicine
DX: R53.83 Other fatigue (principal); R35.0 Frequency of micturition

== ENCOUNTER → 2017-02-10 | Outpatient (CLI) | payer OTHER | END | disposition home or self-care (01) | LOC: C.LABMFLN 09:26 | PROVIDERS: ATTEND Family Medicine | DX: R35.0 Frequency of micturition (principal) ==

== ENCOUNTER → 2017-04-27 | Outpatient (CLI) | payer OTHER | END | disposition home or self-care (01) | LOC: C.LABMFLN 08:25 | PROVIDERS: ATTEND Family Medicine | DX: N39.0 Urinary tract infection, site not specified (principal) ==

== ENCOUNTER → 2017-05-22 | Outpatient (CLI) | payer OTHER ==
[2017-05-22 13:36] LABS: ALT/SGPT 27 U/L (12-78); AST/SGOT 21 U/L (15-37); BLOOD UREA NITROGEN 15 mg/dl (7-18); CALCIUM 9.5 mg/dl (8.5-10.1); CARBON DIOXIDE 32 mmol/L (21-32); CHOLESTEROL 164 mg/dl (0-200); GLUCOSE 104 mg/dl (70-99); POTASSIUM 4.1 mmol/L (3.5-5.1); SODIUM 136 mmol/L (136-145)
[2017-05-22 13:38] LABS: LDL CHOLESTEROL CALCULATED 83 mg/dl
== END | disposition home or self-care (01) ==
LOC: C.LABMFLN 06:57
PROVIDERS: ATTEND Family Medicine
DX: I10 Essential (primary) hypertension (principal); E78.00 Pure hypercholesterolemia, unspecified; E83.42 Hypomagnesemia; M81.0 Age-related osteoporosis without current pathological fracture

== ENCOUNTER → 2017-09-15 | Outpatient (CLI) | payer OTHER | END | disposition home or self-care (01) | LOC: C.LABMFLN 15:25 | PROVIDERS: ATTEND Family Medicine | DX: R35.0 Frequency of micturition (principal) ==